=== PATIENT | female | born 1965 | race Two or more races ===

== ENCOUNTER 2016-05-29 10:32 | Emergency (ER) | payer BC ==
[2016-05-29 10:42] VITALS: BP 144/84; PULSE 99; TEMP 98.2; BMI 31.6
--- NOTE | 2016-05-29 11:47 | PDOC ---
History of Present Illness - General Chief Complaint: Injury Stated Complaint: RT ANKLE PAIN Time Seen by Provider: 05/29/16 11:10 - History of Present Illness Initial Comments: 05/29/16 11:41 CHIEF COMPLAINT: Right ankle, left knee pain HISTORY OF PRESENT ILLNESS: Presents to [employer] with right ankle and left knee pain status post fall last week. Patient states one week ago she was picking her granddaughter up from the bus stop when she slipped and fell because it was icy outside. Patient states that she was able to walk over the last week but feels like she is limping. She has discomfort to her right ankle at times when walking on it funny. And states that she sometimes feels that her left knee will buckle. She denies any trauma to head, loss of consciousness, or trauma to any other part of the body. Patient denies any chance of , states "my is fixed and my children are 29 and 30 years old." PAST MEDICAL HISTORY: Denies past medical history FAMILY HISTORY: Denies SOCIAL HISTORY: Current smoker, 1/2 pack daily. Denies alcohol, illicit drug use. SURGICAL HISTORY: Denies ALLERGIES: No known drug allergies REVIEW OF SYSTEMS General/Constitutional: Denies fever or chills. Denies weakness, weight change. HEENT: Denies change in vision. Denies ear pain or discharge. Denies sore throat. Cardiovascular: Denies chest pain or shortness of breath. Respiratory: Denies cough, wheezing, or hemoptysis. Gastrointestinal: Denies nausea, vomiting, diarrhea or constipation. Denies rectal bleeding. Genitourinary: Denies dysuria, frequency, or change in urination. Musculoskeletal: R ankle pain, left knee pain. Denies joint or muscle swelling or pain. Denies neck or back pain. Skin and breasts: Denies rash or easy bruising. Neurologic: Denies headache, vertigo, loss of consciousness, or loss of sensation. PHYSICAL EXAM General Appearance: Well-appearing, appropriately dressed. No apparent distress. Respiratory/Chest: Lungs CTAB. Cardiovascular: RRR. S1, S2. Vascular Pulses: Dorsalis-Pedis (R): 2+, Dorsalis-Pedis (L): 2+ Lymphatic: No adenopathy, tenderness. Musculoskeletal/Extremities: Minimal pain on full extension of L knee, minimal ecchymosis to anterior knee. No tenderness or swelling to R malleoli bilaterally, no tenderness to base of metatarsals. Normal inspection. FROM of all extremities, normal capillary refill. Pelvis Stable. No CVA tenderness. No tenderness to extremities, pedal edema, swelling, erythema or deformity. Integumentary: Appropriate color, dry, warm. 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 Fully oriented, alert. Appropriate mood/affect. Motor strength 5/5. No appreciable EOM palsy, facial droop or sensory deficit. Past History - Past Medical History Allergies/Adverse Reactions: Allergies Allergy/AdvReac Type Severity Reaction Status Date / Time No Known Allergies Allergy Verified 05/29/16 10:39 Home Medications: Ambulatory Orders Naproxen 250 mg PO BID #14 tablet 05/29/16 Other medical history: DENIES. - Psycho/Social/Smoking Cessation Hx Suicidal Ideation: No Smoking History: Current every day smoker Have you smoked in the past 12 months: Yes Number of Cigarettes Smoked Daily: 10 Information on smoking cessation initiated: No *Physical Exam - Vital Signs Last Vital Signs Temp Pulse Resp BP Pulse Ox 98.2 F 99 H 19 144/84 98 05/29/16 10:39 05/29/16 10:39 05/29/16 10:39 05/29/16 10:39 05/29/16 10:39 ED Treatment Course - RADIOLOGY Radiology Studies Ordered: Category Date Time Status KNEE 3 POS-LEFT [RAD] Stat Radiology 05/29/16 11:35 Ordered Medical Decision Making - Medical Decision Making 05/29/16 11:47 50-year-old male with no past medical history presents to fast track with right ankle pain and left knee pain 1 week. No tenderness appreciated on exam to right ankle. No imaging indicated at this time. Left knee x-ray X-ray wet read negative for fracture or dislocation. Julius wrap, L knee immobilizer. 250 mg Naproxen po bid x 7 days. Will refer to orthopedics. Advised patient to follow with orthopedics this week and of signs and symptoms for return to ER. Patient verbalized understanding and agrees to plan. *DC/Admit/Observation/Transfer Diagnosis at time of Disposition: Ankle pain, right Qualifiers: Chronicity: acute Qualified Code(s): M25.571 - Pain in right ankle and joints of right foot Knee pain, left Qualifiers: Chronicity: acute Qualified Code(s): M25.562 - Pain in left knee - Discharge Dispostion Disposition: HOME Condition at time of disposition: Stable Admit: No - Prescriptions Prescriptions: Naproxen 250 mg PO BID #14 tablet - Referrals Referrals: Dario Kendrick MD [Staff Physician] - - Patient Instructions Printed Discharge Instructions: DI for Knee Pain, DI for Ankle Pain Additional Instructions: Please take medication as prescribed. Please follow-up with orthopedics THIS week for further evaluation and possible referral to physical therapy. If you experience severe pain, inability to walk, loss of sensation, numbness, tingling , or any other new or worsening symptoms please return to the ER.
== END 2016-05-29 12:40 | disposition home or self-care (01) ==
LOC: JERFT 10:32
PROC: 2W3MX1Z Immobilization of Left Lower Extremity using Splint (ICD-10-PCS; principal; 2016-05-29)
DX: M25.562 Pain in left knee (principal); M25.571 Pain in right ankle and joints of right foot; W00.2XXA Other fall from one level to another due to ice and snow, initial encounter; Y93.89 Activity, other specified; Y92.480 Sidewalk as the place of occurrence of the external cause; Y99.8 Other external cause status
CPT/HCPCS: 73562-TC-LT; 99281-25

== ENCOUNTER 2017-02-13 08:27 | Emergency (ER) | payer BC ==
[2017-02-13 08:32] VITALS: BMI 33.4
--- NOTE | 2017-02-13 08:58 | PDOC ---
History of Present Illness - General History Source: Patient Exam Limitations: No Limitations - History of Present Illness Initial Comments: 02/13/17 09:06 51 year old female, with no significant past medical history, who presents to the emergency room complaining of 2 weeks of RLQ abdominal pain and right sided back pain. She reports that the pain initially started in her right back 2 weeks ago and began to radiate to her RLQ. The pain is exacerbated with movement. She denies dysuria, hematuria, urinary frequency. She reports that she had an intestinal infection 1 year ago that felt similar to this. She notes that she traveled to [place] last week, but the symptoms began prior to vacation. Denies fever, chills, nausea, vomiting, diarrhea, constipation. Denies dysuria, hematuria, urinary frequency. Denies vaginal bleeding, vaginal discharge, foul odor. Denies heavy lifting, recent trauma, or injury. Allergies: NKDA Social hx: Tobacco use (half pack per day). PCP: none <Ashley Key - Last Filed: 02/13/17 09:06> <Yuly Dodson - Last Filed: 02/13/17 11:45> - General Chief Complaint: Pain Stated Complaint: ABD PAIN Time Seen by Provider: 02/13/17 08:45 Past History <Ashley Key - Last Filed: 02/13/17 09:06> - Past Medical History Other medical history: NONE - Suicide/Smoking/Psychosocial Hx Smoking History: Current every day smoker Have you smoked in the past 12 months: Yes Number of Cigarettes Smoked Daily: 10 Information on smoking cessation initiated: No Hx Alcohol Use: No Drug/Substance Use Hx: No Substance Use Type: None <Yuly Dodson - Last Filed: 02/13/17 11:45> - Past Medical History Allergies/Adverse Reactions: Allergies Allergy/AdvReac Type Severity Reaction Status Date / Time No Known Allergies Allergy Verified 02/13/17 08:32 Home Medications: Ambulatory Orders NK [No Known Home Medication] 02/13/17 Review of Systems - Review of Systems Able to Perform ROS?: Yes Comments:: 02/13/17 09:07 GENERAL/CONSTITUTIONAL: No fever or chills. No weakness. HEAD, EYES, EARS, NOSE AND THROAT: No change in vision. No ear pain or discharge. No sore throat. GASTROINTESTINAL: +RLQ pain that radiates to the back. No nausea, vomiting, diarrhea or constipation. GENITOURINARY: No dysuria, frequency, or change in urination. CARDIOVASCULAR: No chest pain or shortness of breath. RESPIRATORY: No cough, wheezing, or hemoptysis. MUSCULOSKELETAL: No neck pain. SKIN: No rash NEUROLOGIC: No headache, vertigo, loss of consciousness, or change in strength/ sensation. ENDOCRINE: No increased thirst. No abnormal weight change. HEMATOLOGIC/LYMPHATIC: No anemia, easy bleeding, or history of blood clots. ALLERGIC/IMMUNOLOGIC: No hives or skin allergy. <Ashley Key - Last Filed: 02/13/17 09:06> *Physical Exam - Vital Signs Last Vital Signs Temp Pulse Resp BP Pulse Ox 98.1 F 104 H 20 152/89 100 02/13/17 08:28 02/13/17 08:28 02/13/17 08:28 02/13/17 08:28 02/13/17 08:28 - Physical Exam Comments: 02/13/17 09:08 Constitutional: Awake, alert, oriented. No acute distress. Non toxic appearing. Head: Normocephalic. Atraumatic Eyes: PERRL. EOMI. Conjunctivae are not pale. ENT: Mucous membranes are moist and intact. Posterior pharynx without exudates or erythema. Uvula midline. Neck: Supple. Full ROM. No lymphadenopathy. Cardiovascular: Regular rate. Regular rhythm. S1, S2 regular. Distal pulses are 2+ and symmetric. Pulmonary/Chest: No evidence of respiratory distress. Clear to auscultation bilaterally No wheezing, rales or rhonchi. Abdominal: +suprapubic tenderness. Soft and non-distended. No rebound, guarding or rigidity. No organomegaly. No palpable masses. Good bowel sounds. Back: No CVA tenderness. No midline cervical, thoracic, lumbar tenderness. No paraspinal tenderness. Musculoskeletal: No edema. No cyanosis. No clubbing. Full range of motion in all extremities. Nocalf tenderness. Radial/pedal pulses are intact and 2+ bilaterally Skin: Skin is warm and dry. No petechiae. No purpura. Neurological: Alert and oriented to person, place, and time. Cranial nerves II -XII are grossly intact. Ambulates with steady gait. Normal speech. Strength is grossly symmetric. No sensory deficits. Psychiatric: Good eye contact. Normal interaction, affect and behavior. <Ashley Key - Last Filed: 02/13/17 09:06> - Vital Signs Last Vital Signs Temp Pulse Resp BP Pulse Ox 98.1 F 104 H 20 152/89 100 02/13/17 08:28 02/13/17 08:28 02/13/17 08:28 02/13/17 08:28 02/13/17 08:28 <Yuly Dodson - Last Filed: 02/13/17 11:45> Procedures - Bedside Ultrasound Bedside Ultrasound: Gallbladder Other: Renal ultrasound - no hydro, b/l ureteral jets Remarks: 02/13/17 09:52 RUQ ultrasound- negative for gallstones, no gb wall thickening, wall measures 0.25cm, no pericholecystic fluid, negative sonographic murphys Renal ultrasound - no hydro, no stones visualized, b/l ureteral jets <Yuly Dodson - Last Filed: 02/13/17 11:45> ED Treatment Course - LABORATORY CBC & Chemistry Diagram: 02/13/17 09:30 02/13/17 09:30 <Yuly Dodson - Last Filed: 02/13/17 11:45> Medical Decision Making - Medical Decision Making 02/13/17 10:39 a/p: 51yo female with suprapubic pain that radiates around to her back. -no vaginal complaints -no trauma -no mcburneys or murphys ttp -bedside ultrasound of gallbladder and renal is negative -ambulatory with a steady gait -no midline ttp -will check labs and pelvic ultrasound 02/13/17 10:42 re-eval: pain controlled at this time -pending labs and pelvic ultrasound 02/13/17 11:42 discussed imaging reults and lab results. Pt with uterine fibroid and cyst on L ovary. [facility]s follow up with [facility] [place]. Discussed need also for a PMD. Answered all questions. Pt stable for d/c to home. No vaginal complaints at this time. <Yuly Dodson - Last Filed: 02/13/17 11:45> *DC/Admit/Observation/Transfer - Attestations Scribe Attestion: 02/13/17 09:09 Documentation prepared by BIB Agarwal, acting as medical accounting clerk for Yuly Dodson DO. <Ashley Key - Last Filed: 02/13/17 09:06> - Discharge Dispostion Admit: No - Attestations Physician Attestion: 02/13/17 11:45 I, Dr. Yuly Dodson DO, attest that this document has been prepared under my direction and personally reviewed by me in its entirety. I further attest, that it accurately reflects all work, treatment, procedures and medical decision -making performed by me. <Yuly Dodson - Last Filed: 02/13/17 11:45> Diagnosis at time of Disposition: Uterine leiomyoma, Low back pain, Cyst of ovary - Discharge Dispostion Disposition: HOME Condition at time of disposition: Stable - Referrals Referrals: Franco Das MD [Staff Physician] - Yaya Mukherjee MD [Staff Physician] - - Patient Instructions Printed Discharge Instructions: DI for Uterine Fibroids, DI for Ovarian Cyst Additional Instructions: Please follow up with both the PMD and the [facility] in the next week. Please take tylenol or motrin for the pain. Please return to the ED with any further concerns.
[2017-02-13 09:44] LABS: BASOPHIL 1.1 % (0-2.0); EOSINOPHIL 0.7 % (0-4.5); MCH 25.1 pg (25.7-33.7); MEAN CELL VOLUME 78.5 fl (80-96); MEAN PLT VOLUME 9.8 fl (7.5-11.1); NEUTROPHILS 56.1 % (42.8-82.8); PLATELET COUNT 236 K/MM3 (134-434); RDW 15.8 % (11.6-15.6); WHITE BLOOD COUNT 4.7 K/mm3 (4.0-10.0)
[2017-02-13 09:50] LABS: URINE APPEARANCE CLEAR; URINE BILIRUBIN NEGATIVE (NEGATIVE); URINE BLOOD NEGATIVE (NEGATIVE); URINE COLOR LTYELLOW; URINE GLUCOSE (UA) NEGATIVE (NEGATIVE); URINE KETONE NEGATIVE (NEGATIVE); URINE NITRITE NEGATIVE (NEGATIVE); URINE PROTEIN NEGATIVE (NEGATIVE); URINE UROBILINOGEN NEGATIVE mg/dL (0.2-1.0)
[2017-02-13] MEDS ORDERED: KETOROLAC TROMETHAMINE 60 MG/2 ML VIAL IM ONE (10:08)
[2017-02-13 10:15] LABS: ALBUMIN 3.5 g/dl (3.4-5.0); ALK PHOS 63 U/L (45-117); ANION GAP 6 (8-16); BILIRUBIN,TOTAL 0.4 mg/dL (0.2-1.0); CALCIUM 9.2 mg/dL (8.5-10.1); CO2 26 mmol/L (21-32); CREATININE 0.7 mg/dL (0.55-1.02); GLUCOSE,RANDOM 97 mg/dL (74-106); SGOT/AST 17 U/L (15-37); SGPT/ALT 33 U/L (12-78); TOT PROT 6.9 g/dl (6.4-8.2)
[2017-02-13] MEDS ORDERED: KETOROLAC TROMETHAMINE 60 MG/2 ML VIAL ONE (10:27)
[2017-02-13 11:12] LABS: URINE LEUK ESTERASE Negative (NEGATIVE)
[2017-02-13 12:25] VITALS: BP 112/65; PULSE 73; TEMP 98
== END 2017-02-13 12:25 | disposition home or self-care (01) ==
LOC: JER 08:27
PROC: 3E0233Z Introduction of Anti-inflammatory into Muscle, Percutaneous Approach (ICD-10-PCS; principal; 2017-02-13)
DX: F17.210 Nicotine dependence, cigarettes, uncomplicated (principal); D25.9 Leiomyoma of uterus, unspecified; M54.5 Low back pain; N83.209 Unspecified ovarian cyst, unspecified side
CPT/HCPCS: 36415; 76830-TC; 80053; 81003; 83690; 84703; 85025; 99283-25

== ENCOUNTER 2018-04-03 12:26 | Emergency (ER) | payer BC ==
[2018-04-03 12:32] VITALS: BP 140/72; PULSE 90; TEMP 98.2; BMI 33.9
[2018-04-03] MEDS ORDERED: KETOROLAC TROMETHAMINE 60 MG/2 ML VIAL IM ONE (12:47)
[2018-04-03] MEDS ORDERED: predniSONE 20 MG TABLET (UD) PO ONE (12:48)
[2018-04-03] MEDS ORDERED: KETOROLAC TROMETHAMINE 60 MG/2 ML VIAL ONE (12:52)
[2018-04-03] MEDS ORDERED: predniSONE 20 MG TABLET (UD) ONE (12:52)
--- NOTE | 2018-04-03 12:54 | PDOC ---
History of Present Illness - General Chief Complaint: Back Pain Stated Complaint: BACK PAIN Time Seen by Provider: 04/03/18 12:41 History Source: Patient Exam Limitations: No Limitations - History of Present Illness Initial Comments: Patient is a 52-year-old female who states that over the past 5 days she has had pain on the right gluteus walter radiating down the right lower extremity. She denies injury or trauma. She denies fever, denies previous injury or surgeries to her back. Denies history of IV drug use. Denies urinary symptoms. Patient describes the pain as sharp and rates it at a 6 out of 10. Patient has been attempting Advil with minimal relief. Patient denies any aggravating or relieving factors. 04/03/18 12:48 Past History - Travel Traveled outside of the country in the last 30 days: No Close contact w/someone who was outside of country & ill: No - Past Medical History Allergies/Adverse Reactions: Allergies Allergy/AdvReac Type Severity Reaction Status Date / Time No Known Allergies Allergy Verified 04/03/18 12:29 Home Medications: Ambulatory Orders Methylprednisolone [Medrol Dose Aidan] 4 mg PO ASDIR #21 tablet 04/03/18 COPD: No - Immunization History Immunization Up to Date: Yes - Suicide/Smoking/Psychosocial Hx Smoking History: Never smoked Have you smoked in the past 12 months: Yes Number of Cigarettes Smoked Daily: 10 Hx Alcohol Use: No Drug/Substance Use Hx: No Substance Use Type: None Review of Systems - Review of Systems Able to Perform ROS?: Yes Constitutional: No: Chills, Fever Musculoskeletal: Yes: Back Pain All Other Systems: Reviewed and Negative *Physical Exam - Vital Signs Last Vital Signs Temp Pulse Resp BP Pulse Ox 98.2 F 90 16 140/72 100 04/03/18 12:30 04/03/18 12:30 04/03/18 12:30 04/03/18 12:30 04/03/18 12:30 - Physical Exam Comments: Constitutional: VS stated, pt appears in no apparent distress; ambulated to examination room, steady gait noted. Skin: Warm and dry. Intact, no lesions or excoriations. Head: Normocephalic; atraumatic Eyes: cnjunctiva pink without injection or discharge. Throat: Oropharynx with pink and moist mucosa Lungs: Bilateral breath sounds clear upon auscultation. No adventitious breath sounds. Heart: Regular rate and rhythm, S1/S2 auscultated. No murmurs, rubs, or gallops. No visible pulsations, heaves, or lifts on precordium. Abdomen: Soft and non-tender. Musculoskeletal: rmal curves of cervical, thoracic, and lumbar spine. Full ROM of cervical and lumbar spine. Proximal joints normal; neck, arms, hips, knees, and ankles with full range of active and passive motion. Muscles appear symmetric. I can duplicate the pain by pressing on the right gluteus walter. Sensation intact medially and laterally. No saddle anesthesia. DTRs+2. No tenderness on palpation of spine. 5/5 strength in upper extremities and lower extremity groups. Neurologic: Awake, alert. Conversation fluent. Psychiatric: Appropriate affect. 04/03/18 12:50 Moderate Sedation - Procedure Monitoring Vital Signs: Procedure Monitoring Vital Signs Temperature 98.2 F 04/03/18 12:30 Pulse Rate 90 04/03/18 12:30 Respiratory Rate 16 04/03/18 12:30 Blood Pressure 140/72 04/03/18 12:30 O2 Sat by Pulse Oximetry (%) 100 04/03/18 12:30 Medical Decision Making - Medical Decision Making Patient has had no injury or trauma. She has no pain upon palpation of the cervical, thoracic or lumbar spine. I can duplicate the pain by pressing on the right gluteus walter. I feel this is more sciatic in nature. Patient was given Toradol 60 mg IM and prednisone 60 mg by mouth. Patient will continue with her nonsteroidal and prednisone and follow-up with PCP. Patient has no red flag signs warranting emergent MRI. 04/03/18 12:52 *DC/Admit/Observation/Transfer Diagnosis at time of Disposition: Sciatica Qualifiers: Laterality: right Qualified Code(s): M54.31 - Sciatica, right side - Discharge Dispostion Disposition: HOME Decision to Admit order: No - Prescriptions Prescriptions: Methylprednisolone [Medrol Dose Aidan] 4 mg PO ASDIR #21 tablet - Referrals - Patient Instructions Printed Discharge Instructions: DI for Sciatica Additional Instructions: Continue to take the nonsteroidal as directed. Take the prednisone as directed. Follow-up with your primary care physician. - Post Discharge Activity
== END 2018-04-03 13:05 | disposition home or self-care (01) ==
LOC: JERFT 12:26
PROC: 3E0233Z Introduction of Anti-inflammatory into Muscle, Percutaneous Approach (ICD-10-PCS; principal; 2018-04-03)
DX: M54.31 Sciatica, right side (principal)
CPT/HCPCS: 99281-25